=== PATIENT | female | born 1985 | race Caucasian/White ===

== ENCOUNTER 2017-03-20 18:01 | Emergency (ER) | payer MEDICAID ==
[~2017-03-20] VITALS: Ht 160 cm; Wt 89.0 kg
[~2017-03-20 18:01] MED LIST: CALC-143 PO; CEPH-443 PO; FERR240T9 PO; IBUP-1542 PO; PRENAT PO; TRAM50TA2 PO
[2017-03-20 18:02] VITALS: Ht 160 cm; Wt 89.0 kg
[2017-03-20] MEDS ORDERED: PRED20TA PO (19:32)
[2017-03-20] MEDS ORDERED: IBUP-1542 PO (19:32)
[2017-03-20] MEDS ORDERED: AMO500 PO (19:32)
--- NOTE | 2017-03-20 19:34 | ERD ---
ER Documentation Chief Complaint Date/Time DATE: 03/20/17 TIME: 19:[address] x 2 weeks, right ear pain HPI This 31-year-old female presents with sore throat for last 2 weeks with swollen lymph nodes in neck. She denies any measured fevers, she is had a cough for last 2 days patient has vomiting, abdominal pain, rashes, urinary complaints. ROS All systems reviewed and are negative except as per history of present illness. Medications Home Meds Active Scripts Ibuprofen* (Motrin*) 600 Mg Tab, 600 MG PO Q6H Y for PAIN, #20 TAB Prov:SAGAR POWER MD 03/20/17 Amoxicillin* (Amoxicillin*) 500 Mg Cap, 500 MG PO TID for 10 Days, CAP Prov:SAGAR POWER MD 03/20/17 Prednisone* (Prednisone*) 20 Mg Tab, 40 MG PO DAILY for 3 Days, TAB Prov:SAGAR POWER MD 03/20/17 Tramadol HCl (Tramadol HCl) 50 Mg Tablet, 50 MG PO Q6 Y for SEVERE PAIN LEVEL 7- 10, #20 TAB Prov:DEREK SRIVASTAVA NP 08/18/16 Ibuprofen* (Motrin*) 600 Mg Tab, 600 MG PO Q6H Y for PAIN AND OR ELEVATED TEMP, #30 TAB Prov:DEREK SRIVASTAVA NP 08/18/16 Cephalexin* (Keflex*) 500 Mg Capsule, 500 MG PO QID for 5 Days, CAP Prov:DEREK SRIVASTAVA NP 08/18/16 Reported Medications Ferrous Gluconate (Iron) 1 Tab Tablet, 1 TAB PO, TAB 12/22/15 Calcium Citrate/Vitamin D (Citracal-Vitamin D 200 MG-250) 1 Each Tablet, 1 EACH PO BID, TAB 12/22/15 Multivit/Min/Fol Ac/Iron/Pren* ( S*) 1 Tab Tab, 1 TAB PO DAILY, TAB 12/22/15 Allergies Allergies: Coded Allergies: No Known Allergy (Unverified , 03/28/16) PMhx/Soc Hx Alcohol Use: No Hx Substance Use: No Hx Tobacco Use: No Physical Exam Vitals Vital Signs Date Time Temp Pulse Resp B/P Pulse Ox O2 Delivery O2 Flow Rate FiO2 03/20/17 18:02 98.5 68 20 140/71 99 Physical Exam Const: [] Alert, not ill-appearing. Head: Atraumatic Eyes: Normal Conjunctiva ENT: Normal External Ears, Nose and Mouth. Tonsils are 3+ with erythema and slight exudate. There is tender anterior cervical lymphadenitis. TMs appear normal. Neck: Full range of motion..~ No meningismus. Resp: Clear to auscultation bilaterally Cardio: Regular rate and rhythm, no murmurs Abd: Soft, non tender, non distended. Normal bowel sounds Skin: No petechiae or rashes Back: No midline or flank tenderness Ext: No cyanosis, or edema Neur: Awake and alert Psych: Normal Mood and Affect Procedures/MDM Patient presents with two-week history of sore throat and signs of pharyngitis lymphadenitis patient be given a short course prednisone for lymphadenitis and will be treated with amoxicillin and ibuprofen source for clear fluids and instructions for follow-up with primary care doctor this week. Is no evidence of abscess, no obstruction, mastoiditis, additional competitions related to primary complaints. The patient was stable with no new complaints during the ER course. Clinically, there is no current evidence to suggest meningitis, sepsis, acute abdomen, pneumonia, acute coronary syndrome, pulmonary embolism, or any other emergent condition appearing to require further evaluation or hospitalization. The patient should certainly return for any new or worsening symptoms per the aftercare instructions. They should otherwise follow-up with her primary care doctor for reevaluation this week. Departure Diagnosis: Primary Impression: Sore throat Condition: Stable Patient Instructions: Pharyngitis, Strep (Presumed) Additional Instructions: Recheck for new or worsening symptoms or primary care doctor. SAGAR POWER MD March 20, 2017 19:34
== END 2017-03-20 19:44 | disposition home or self-care (01) ==
LOC: FTE 18:01
DX: J02.9 Acute pharyngitis, unspecified (principal)
CPT/HCPCS: 99284

== ENCOUNTER 2018-03-07 08:20 | Emergency (ER) | END 2018-03-07 10:13 | disposition home or self-care (01) ==

== ENCOUNTER 2019-05-25 16:49 | Emergency (ER) | payer MEDICAID, OTHER ==
[~2019-05-25] VITALS: Ht 160 cm; Wt 90.5 kg
[~2019-05-25 16:49] MED LIST changes: +AMOX500C2 PO; +NAPR-985 PO; +PRED20TA PO
[2019-05-25 16:57] VITALS: BP 148/74; PULSE 78; RESP 16; Ht 160 cm; Wt 90.5 kg
--- NOTE | 2019-05-25 17:56 | ERD ---
ER Documentation Chief Complaint Chief Complaint chest pain/soreness with left sided facial numbness x 5 days HPI This is a 33-year-old female with a past medical history of obesity and pre eclampsia who is presenting with waxing and waning left-sided facial numbness with right-sided aching sore chest pain, exacerbated by stress and anxiety and fighting with her children and her partner, relieved by rest and calming down. The patient does not currently endorse any weakness or numbness to the face or extremities. She does feel intermittent tingling to the left side of the face which is concerning to her. The patient reports that she had a deep dull aching sensation to the mid chest and felt like there was a pit in her throat 5 days ago when she was fighting with her daughter. The symptoms have mostly resolved, but she still has an aching soreness to the right shoulder, and her symptoms do return when she thinks about the fight and the stress in her life. She denies lightheadedness or dizziness. She denies nausea or vomiting. She denies diaphoresis. She denies shortness of breath. The patient denies feeling sick recently. The patient denies fever or chills. The patient has had no headache or vision changes. The patient does not endorse neck or back pain. The patient denies abdominal pain. The patient denies changes to bowel movements or urination. The patient has had no focal deficits. The patient has had no weakness or numbness or tingling to the face or extremities. ROS All systems reviewed and are negative except as per history of present illness. Medications Home Meds Active Scripts Naproxen* (Naprosyn*) 500 Mg Tablet, 500 MG PO BID PRN for PAIN AND/OR INFLAMMATION, #30 TAB Prov:SY JOHNSTON PA-C 03/07/18 Ibuprofen* (Motrin*) 600 Mg Tab, 600 MG PO Q6H PRN for PAIN, #20 TAB Prov:SAGAR POWER MD 03/20/17 Amoxicillin* (Amoxicillin*) 500 Mg Cap, 500 MG PO TID for 10 Days, CAP Prov:SAGAR POWER MD 03/20/17 Prednisone* (Prednisone*) 20 Mg Tab, 40 MG PO DAILY for 3 Days, TAB Prov:SAGAR POWER MD 03/20/17 Tramadol HCl (Tramadol HCl) 50 Mg Tablet, 50 MG PO Q6 PRN for SEVERE PAIN LEVEL 7-10, #20 TAB Prov:DEREK SRIVASTAVAMathieu PALACIOS 08/18/16 Ibuprofen* (Motrin*) 600 Mg Tab, 600 MG PO Q6H PRN for PAIN AND OR ELEVATED TEMP, #30 TAB Prov:DEREK SRIVASTAVAMathieu PALACIOS 08/18/16 Cephalexin* (Keflex*) 500 Mg Capsule, 500 MG PO QID for 5 Days, CAP Prov:DEREK SRIVASTAVAMathieu PALACIOS 08/18/16 Reported Medications Ferrous Gluconate (Iron) 1 Tab Tablet, 1 TAB PO, TAB 12/22/15 Calcium Citrate/Vitamin D (Citracal-Vitamin D 200 MG-250) 1 Each Tablet, 1 EACH PO BID, TAB 12/22/15 Multivit/Min/Fol Ac/Iron/Pren* ( S*) 1 Tab Tab, 1 TAB PO DAILY, TAB 12/22/15 Allergies Allergies: Coded Allergies: No Known Allergy (Unverified , 03/28/16) PMhx/Soc Medical and Surgical Hx: pt denies Medical Hx, pt denies Surgical Hx History of Surgery: No Hx Neurological Disorder: No Hx Respiratory Disorders: No Hx Cardiac Disorders: No Hx Psychiatric Problems: No Hx Miscellaneous Medical Probl: Yes (Obesity) Hx Alcohol Use: No Hx Substance Use: No Hx Tobacco Use: No FmHx Family History: No diabetes Physical Exam Vitals Vital Signs Date Temp Pulse Resp B/P (MAP) Pulse Ox O2 O2 Flow FiO2 Time Delivery Rate 05/25/19 98.9 78 16 148/74 100 16:57 (98) Physical Exam Const: No apparent distress, well-developed, well-nourished Head: Normocephalic, Atraumatic Eyes: Normal Conjunctiva. Extraocular movements intact. Pupils equal, round and reactive to light ENT: Normal External Ears, Nose and Mouth. Neck: Full range of motion. No meningismus. Resp: Clear to auscultation bilaterally, No wheezes, rales or rhonchi Cardio: Regular rate and rhythm. No murmurs, rubs or gallops Abd: Soft, non tender, non distended. Normal bowel sounds Skin: No petechiae or rashes Back: No midline tenderness. No CVA tenderness Ext: No cyanosis, or edema Neur: Awake and alert, oriented 4. Cranial nerves intact. No facial droop. Normal strength, sensation and coordination. Psych: Normal Mood and Affect Procedures/MDM MDM The patient's presentation warrants further investigation. Previous medical records, if available, were reviewed. EKG EKG read by me: Rate/Rhythm: Regular rate and rhythm at a rate of 68 bpm Intervals: Normal Lester: Normal Impression: No evidence of acute ischemia or arrhythmia TREATMENT/DISPOSITION The patient presents with paresthesias to the face and soreness to the right shoulder with exacerbating symptoms related to significant stress in her life. The patient's symptoms are most consistent with an anxiety reaction. The patient does not have any cardiovascular risk factors. She is less than 60 year s old. She does have an initial blood pressure of 148/74. She does not have any unilateral weakness or any speech disturbance. The patient does not have a history of diabetes. I do not see any active symptoms at this time. The patient's NIH stroke scale is 0 objectively. I have very low suspicion for an intracranial pathology such as cerebral ischemia or intracranial hemorrhage. The patient does not have a personal or family history of cerebral aneurysm or subarachnoid hemorrhage. She does not have any neck stiffness or pain or meningismus. She does not endorse a headache. I do not suspect subarachnoid hemorrhage. I do not feel that advanced imaging is warranted at this time. The patient also endorses aching right-sided chest and shoulder pain. The patient's EKG is normal. I have very low suspicion for acute coronary syndrome. The patient's lungs are clear without pneumonia or pneumothorax or pleural effusions or pulmonary edema. The patient does not have signs or symptoms concerning for thoracic aortic aneurysm or dissection. The patient does not have any crepitus or signs concerning for esophageal tear or rupture. The patient has no clinical signs of pericardial effusion or tamponade. I have decreased suspicion of viscus perforation as possible referred pain. The patient does not have a history of heart failure and I have low suspicion for this. The patient does not have a diagnosis of COPD and is not wheezing today. The patient is not tachypneic or hypoxic. The patient is breathing comfortably and without pleuritic pain. The patient is not on hormonal therapy. The patient has no history of clotting or bleeding disorders. The patient has no calf tenderness. The patient has had no hemoptysis. I have decreased suspicion for PE. The patient's troponin and EKG are reassuring. I have low suspicion for acute coronary syndrome. DISCHARGE Upon reevaluation of the patient, symptoms have improved. No emergent diagnoses were identified. At this time, I feel that the patient stable for discharge. The patient was instructed to follow-up with a primary care physician in 1-3 days. The patient will be given strict precautions with which to return to the emergency department. Prescriptions: None The patient's blood pressure was elevated at greater than 120/80 while in the emergency department. The patient was otherwise stable with no evidence of hypertensive urgency or emergency. The patient does not require admission for blood pressure control. I have discussed with the patient the risks of hypertension. I have instructed the patient to return to the ER for any new or worsening symptoms including chest pain, shortness of breath, headache, blurred vision, confusion, nausea, vomiting or LOC. I have advised the patient to follow up with the primary care physician for outpatient monitoring and treatment for hypertension in 1-3 days. Disclaimer: Inadvertent spelling and grammatical errors are likely due to EHR/dictation software use and do not reflect on the overall quality of patient care. Note that the electronic time recorded on this note does not necessarily reflect the actual time of the patient encounter. Departure Diagnosis: Primary Impression: Paresthesia Additional Impressions: Nonspecific chest pain Elevated blood pressure reading Stress reaction Condition: Stable Patient Instructions: Anxiety Reaction, Chest Pain, Uncertain Cause, Paraesthesias Additional Instructions: Thank you for for coming to [facility] for your care today. Please ask your nurse or provider if you have questions about your care today and do not leave until all your questions have been answered. Please use any medications given as directed and follow-up with your doctor (or the doctor you were referred to) in the next 1-3 days. If you do not have a primary care doctor you may follow up at the [facility] [place], [place] or [facility] (listed below). You may also use motrin and tylenol as needed for fever and/or pain unless instructed otherwise by your provider or nurse. Indications for more urgent follow-up have been discussed, but you may return to the Emergency Department at ANY time for any worrisome or worsening symptoms. If you have abdominal pain, please know that no test or exam you received is perfect and you should follow up within 8 hours for continued pain. If you had any imaging studies today, such as an X-Ray or CT Scan, these studies will be reviewed later by a radiologist. You will be called if there are important findings that were not identified today, so make sure the contact information you provided at registration is correct. If you received any narcotic pain control medicine today, such as Vicodin, Morphine or Dilaudid, your coordination and judgment may be affected for a number of hours. Please do not drive or operate heavy machinery, and you may want someone to assist you at home. If you were given a prescription for narcotic medication, be aware that it is very addictive- use sparingly and only if necessary. PLEASE SEEK FURTHER EVALUATION AND MANAGEMENT AT YOUR DOCTORS OFFICE WITHIN THE NEXT 1-3 DAYS. IT IS YOUR RESPONSIBILITY TO MAKE AN APPOINTMENT FOR FOLOW-UP CARE. IF YOU HAVE A PRIMARY DOCTOR, PLEASE CALL THEIR OFFICE TO SCHEDULE AN APPOINTMENT FOR FOLLOW UP. IF YOU DO NOT HAVE A PRIMARY DOCTOR YOU CAN CALL OUR PHYSICIAN REFERRAL HOTLINE AT IF YOU CAN NOT AFFORD TO SEE A PHYSICIAN YOU CAN CHOSE FROM THE FOLLOWING [facility]: [facility] [address] [facility]. [facility] [address] [facility]. [facility] [address] [facility]. [facility] [address] [facility]. [facility] [address] [facility]. [facility]. [address] SHAY LUU MD May 25, 2019 17:56
== END 2019-05-25 18:01 | disposition home or self-care (01) ==
LOC: FTE 16:49
DX: R07.9 Chest pain, unspecified (principal); R20.2 Paresthesia of skin; R03.0 Elevated blood-pressure reading, without diagnosis of hypertension; F43.9 Reaction to severe stress, unspecified; E66.9 Obesity, unspecified; Z68.35 Body mass index [BMI] 35.0-35.9, adult
CPT/HCPCS: 99282